=== PATIENT | male | born 1965 | race Caucasian/White ===

== ENCOUNTER 2020-12-06 12:15 | Emergency (ER) | payer OTHER ==
[2020-12-06] MEDS ORDERED: Acetaminophen 500 MG Tab PO ONE (12:43)
--- NOTE | 2020-12-06 12:50 | EDM.PDOC ---
ED HPI GENERAL MEDICAL PROBLEM - General Chief Complaint: Fever Stated Complaint: HEADACHE,PARCHED,WEAK Time Seen by Provider: 12/06/20 12:35 Source of Information: Reports: Patient. Denies: Old Records History Limitations: Reports: No Limitations - History of Present Illness INITIAL COMMENTS - FREE TEXT/NARRATIVE: 55 yo male from [place] has been in [place] for about 2.5 weeks. He presents with STEARNS, low grade fever, anorexia, and malaise. No self tx. No urinary or GI sx's. No nausea or rash. Has not felt well x 2.5 days. Onset: Gradual Onset Date: 12/03/20 Duration: Day(s): (2+), Constant Location: Reports: Generalized Quality: Reports: Ache (head) Severity: Mild Improves with: Reports: None Worsens with: Reports: Other (unknown) Context: Reports: Other (See HPI) Associated Symptoms: Reports: Fever/Chills, Headaches, Malaise. Denies: Confusion, Cough, Diaphoresis, Nausea/Vomiting, Rash, Seizure, Shortness of Breath Treatments COMPUTER SPECIALIST: Reports: Other (see below) (none) Headache Pain Score (Numeric/FACES): 8 - Related Data Allergies Allergy/AdvReac Type Severity Reaction Status Date / Time No Known Allergies Allergy Verified 12/06/20 12:43 Home Meds: Home Meds Doxycycline [Vibramycin] 100 mg PO BID #20 cap 12/06/20 [Rx] ED ROS GENERAL - Review of Systems Review Of Systems: See Below Constitutional: Reports: Fever, Malaise HEENT: Reports: No Symptoms Respiratory: Reports: No Symptoms Cardiovascular: Reports: Lightheadedness GI/Abdominal: Reports: No Symptoms : Reports: No Symptoms Musculoskeletal: Reports: No Symptoms, Muscle Pain Neurological: Reports: Headache (mild) ED EXAM, GENERAL - Physical Exam Exam: See Below Exam Limited By: No Limitations General Appearance: Alert, WD/WN, No Apparent Distress Eye Exam: Bilateral Eye: Normal Inspection Ears: Normal External Exam, Normal Canal, Hearing Grossly Normal Ear Exam: Bilateral Ear: Auricle Normal, Canal Normal Nose: Normal Inspection, No Blood Throat/Mouth: Normal Inspection, Normal Lips, Normal Oropharynx, Normal Voice, No Airway Compromise Head: Atraumatic, Normocephalic Neck: Normal Inspection Respiratory/Chest: No Respiratory Distress, Lungs Clear, Normal Breath Sounds, No Accessory Muscle Use Cardiovascular: Regular Rate, Rhythm, No Edema GI/Abdominal: Soft, Non-Tender, No Distention Back Exam: No: CVA Tenderness (R), CVA Tenderness (L) Extremities: Normal Inspection, Normal Range of Motion, Non-Tender, No Pedal Edema Neurological: Alert, Oriented, CN II-XII Intact, Normal Cognition, No Motor/Sens ory Deficits Psychiatric: Normal Affect, Normal Mood Skin Exam: Warm, Dry, Intact, Normal Color, No Rash Course - Vital Signs Last Recorded V/S: Last Vital Signs Temp 38.1 C 12/06/20 12:40 Pulse 115 H 12/06/20 12:40 Resp 18 12/06/20 12:40 BP 158/96 H 12/06/20 12:40 Pulse Ox 98 12/06/20 12:40 Orthostatic Blood Pressure [ 138/87 Standing] Orthostatic Blood Pressure [ 135/92 Sitting] Orthostatic Blood Pressure [ 147/95 Supine] - Orders/Labs/Meds Orders: Active Orders 24 hr Category Date Time Status Orthostatic Vital Signs [RC] ASDIRECTED Care 12/06/20 12:43 Active [facility] Routine Lab 12/06/20 13:23 Ordered Sodium Chloride 0.9% [Normal Saline] 1,000 ml Med 12/06/20 13:22 Ordered IV .BOLUS Medication Orders Sodium Chloride (Normal Saline) 1,000 mls @ 1,000 mls/hr IV .BOLUS ONE Stop: 12/06/20 14:21 Labs: Laboratory Tests 12/06/20 12/06/20 Range/Units 12:45 12:45 WBC 6.7 (4.5-11.0) K/uL RBC 6.02 H (4.30-5.90) M/uL Hgb 18.2 H* (12.0-15.0) g/dL Hct 52.0 (40.0-54.0) % MCV 86 (80-98) fL MCH 30 (27-31) pg MCHC 35 (32-36) % Plt Count 101 L (150-400) K/uL Sodium 133 L (140-148) mmol/L Potassium 4.1 (3.6-5.2) mmol/L Chloride 96 L (100-108) mmol/L Carbon Dioxide 27 (21-32) mmol/L Anion Gap 14.1 H (5.0-14.0) mmol/L BUN 16 (7-18) mg/dL Creatinine 1.4 H (0.8-1.3) mg/dL Est Cr Clr Drug Dosing 65.44 mL/min Estimated GFR (MDRD) 53 L (>60) Glucose 118 H (74-106) mg/dL Calcium 8.6 (8.5-10.1) mg/dL Total Bilirubin 1.0 (0.2-1.0) mg/dL AST 37 (15-37) U/L ALT 57 (12-78) U/L Alkaline Phosphatase 95 (46-116) U/L C-Reactive Protein 7.96 H (0.0-0.3) mg/dL Total Protein 7.3 (6.4-8.2) g/dL Albumin 3.7 (3.4-5.0) g/dL Globulin 3.6 H (2.3-3.5) g/dL Albumin/Globulin Ratio 1.0 L (1.2-2.2) Meds: Medications Generic Name Dose Route Start Last Admin Trade Name Freq PRN Reason Stop Dose Admin Sodium Chloride 1,000 mls @ 1,000 mls/hr 12/06/20 13:22 Normal Saline IV 12/06/20 14:21 .BOLUS ONE Discontinued Medications Generic Name Dose Route Start Last Admin Trade Name Freq PRN Reason Stop Dose Admin Acetaminophen 1,000 mg 12/06/20 12:43 12/06/20 12:55 Acetaminophen 500 Mg Tab PO 12/06/20 12:44 1,000 mg ONETIME ONE Administration Doxycycline Hyclate 100 mg 12/06/20 13:22 Doxycycline 100 Mg Cap PO 12/06/20 13:23 ONETIME ONE Departure - Departure Time of Disposition: 14:30 Disposition: Home, Self-Care 01 Condition: Fair Clinical Impression: Anaplasmosis - Discharge Information *PRESCRIPTION DRUG MONITORING PROGRAM REVIEWED*: Not Applicable *COPY OF PRESCRIPTION DRUG MONITORING REPORT IN PATIENT DENIA: Not Applicable Prescriptions: Doxycycline [Vibramycin] 100 mg PO BID #20 cap Referrals: PCP,None [Primary Care Provider] - Forms: ED Department Discharge Additional Instructions: Take doxycycline every 12hrs, avoid exposure to sun on this medication and don't ingest anything with calcium in it 2 hrs before or after this med. Check back by the end of the week on your blood test result for anaplasmosis. Acetaminophen 1000 mg every 6 hrs as needed. Sepsis Event Note (ED) - Evaluation Sepsis Screening Result: No Definite Risk - Focused Exam Vital Signs: Vital Signs Temp Pulse Resp BP Pulse Ox 12/06/20 12:40 38.1 C 115 H 18 158/96 H 98 12/06/20 12:32 100.6 C H 115 H 158/96 H 98 - My Orders Last 24 Hours: My Active Orders 12/06/20 12:43 Orthostatic Vital Signs [RC] ASDIRECTED 12/06/20 13:22 Sodium Chloride 0.9% [Normal Saline] 1,000 ml IV .BOLUS 12/06/20 13:23 [facility] Routine - Assessment/Plan Last 24 Hours: My Active Orders 12/06/20 12:43 Orthostatic Vital Signs [RC] ASDIRECTED 12/06/20 13:22 Sodium Chloride 0.9% [Normal Saline] 1,000 ml IV .BOLUS 12/06/20 13:23 [facility] Routine
[2020-12-06] MEDS ORDERED: Sodium Chloride 0.9% 1,000 ML IV ONE (13:22)
[2020-12-06] MEDS ORDERED: Doxycycline 100 MG Cap PO ONE (13:22)
[2020-12-10 15:12] LABS: HGE IGG TITER Negative (Neg:<1:64); HGE IGM TITER Negative (Neg:<1:20)
== END 2020-12-06 14:47 | disposition home or self-care (01) ==
LOC: JP.ED 12:15
DX: A77.49 Other ehrlichiosis (principal)
CPT/HCPCS: 36415; 80053; 85027; 86140; 86666; 99284; A9270; J7030